=== PATIENT | female | born 1960 | race Caucasian/White ===

== ENCOUNTER 2016-04-08 11:54 | Inpatient (IN) | payer OTHER ==
[2016-04-08] MEDS ORDERED: NS 1,000 ML IV ONE ×2 (12:24→13:23)
[2016-04-08] MEDS ORDERED: ONDANSETRON 4 MG/2 ML VIAL IVP ONE (12:24)
[2016-04-08] MEDS ORDERED: HYDROmorphONE/DILAUDID 1 MG/ML SYR IVP ONE ×2 (12:24→13:54)
[2016-04-08 12:47] LABS: % IMMATURE GRANULYOCYTES 0.7 % (0.0-1.1); ABSOLUTE IMMATURE GRANULOCYTES 0.11 10^3/uL (0.00-0.10); ADD DIFF? NO; ADD MORPH? NO; ADD SCAN? NO; ATYPICAL LYMPHOCYTE FLAG 10 (0-99); FRAGMENT RBC FLAG 0 (0-99); HEMATOCRIT 29.6 % (38.0-47.0); HEMOGLOBIN 9.9 g/dL (12.6-16.3); LEFT SHIFT FLG 0 (0-99); LIPEMIA HEMOLYSIS FLAG 80 (0-99); MEAN CELL HEMOGLOBIN CONCENTR. 33.4 g/dL (32.4-36.7); MEAN CELL VOLUME 98.7 fL (81.5-99.8); PLATELET CLUMPS FLAG 0 (0-99); PLATELET COUNT 276 10^3/uL (150-400); RED CELL DISTRIBUTION WIDTH 13.4 % (11.5-15.2)
[2016-04-08] MEDS ORDERED: IOPAMIDOL (ISOVUE-300) 100 ML BTL IV ONE (12:50)
[2016-04-08 12:56] LABS: INR 1.08 (0.83-1.16); PROTIME(PATIENT) 13.9 SEC (12.0-15.0)
[2016-04-08 12:57] LABS: ALANINE AMINOTRANSFERASE 34 IU/L (9-52); ALBUMIN 3.8 g/dL (3.5-5.0); ALKALINE PHOSPHATASE 57 IU/L (38-126); ANION GAP 9 mEq/L (8-16); ASPARTATE AMINOTRANSFERASE 32 IU/L (14-46); BILIRUBIN,TOTAL 0.5 mg/dL (0.1-1.4); BILIRUBIN-CONJUGATED 0.2 mg/dL (0.0-0.5); BILIRUBIN-UNCONJUGATED 0.3 mg/dL (0.0-1.1); CALCIUM 9.1 mg/dL (8.5-10.4); CARBON DIOXIDE 26 mEq/l (22-31); CHLORIDE 110 mEq/L (97-110); CREATININE 0.9 mg/dL (0.6-1.0); GLOMERULAR FILTRATION RATE > 60; GLUCOSE 145 mg/dL (70-100); POTASSIUM 3.9 mEq/L (3.5-5.2); SODIUM 145 mEq/L (134-144); TOTAL PROTEIN 6.5 g/dL (6.3-8.2)
--- NOTE | 2016-04-08 13:20 | EDPHY ---
H & P Stated Complaint: r side abd pain since this am. +n/+v Source: Patient, Family Exam Limitations: No limitations - Personal History LMP (Females 10-55): Post Menopausal Current Tetanus/Diphtheria Vaccine: Yes Current Tetanus Diphtheria and Acellular Pertussis (TDAP): Yes - Medical/Surgical History Hx Asthma: Yes Hx Chronic Respiratory Disease: No Hx Diabetes: No Hx Cardiac Disease: No Hx Renal Disease: No Hx Cirrhosis: No Hx Alcoholism: No Hx HIV/AIDS: No Hx Splenectomy or Spleen Trauma: No Other PMH: PSH: denies. PMH: hypothyroid - Social History Smoking Status: Never smoked <Jose Lindsey - Last Filed: 04/08/16 14:35> <Philip Marti - Last Filed: 04/08/16 15:39> HPI/ROS: CHIEF COMPLAINT: abdominal pain HISTORY OF PRESENT ILLNESS: awoke this morning with severe right lower quadrant abdominal pain. Awoke her from sleep. It is a severe, constant pain. Worse with any kind of palpation and movement. No position of comfort. Nausea but no vomiting. No diarrhea or constipation. No bloody stools. No previous episode of this. She has no previous abdominal pathology or diagnoses. No fever or chills. No recent illness. No history of kidney stones. No other associated complaints or modifying factors. PREVIOUS ABDOMINAL SURGERIES/DIAGNOSES: None NPO: last night REVIEW OF SYSTEMS: Ten systems reviewed and are negative unless otherwise noted in the HPI EXAMINATION: General Appearance: Alert, no distress . No position of comfort Head: normocephalic, atraumatic Eyes: Pupils equal and round, no conjunctival pallor or injection ENT, Mouth: Mucous membranes dry. Uvula midline. No lesions or edema. Neck: Normal inspection, supple, non-tender Respiratory: Lungs are clear to auscultation . No wheezing, rhonchi or crackles. Cardiovascular: Regular rate and rhythm . No murmur. Pulses intact distally with good perfusion Gastrointestinal: Abdomen is soft with significant tenderness in the right lower quadrant and suprapubically. There is guarding. No tympany rigidity. Rectal exam: Performed with female supply officer at bedside. There is dark tarry stool. No sofía blood. Normal rectal tone. No palpable mass Back: non-tender, no bony abnormalities Neurological: A&O, nonfocal, normal gait Skin: Warm and dry, no rash Extremities: Nontender, no pedal edema Psychiatric: Mood and affect normal DIFFERENTIAL DIAGNOSES: Including but not limited to diverticulitis, colitis, appendicitis, abdominal aneurysm, enteritis MDM: 12:20 p.m. right-sided abdominal pain out of proportion to examination of the patient. Vital signs reveal hypertension but no other abnormalities. She is significantly tender palpation, thus we ordered IV pain medication, IV fluid in the i-STAT verify her creatinine to obtain a CT scan. Laboratory studies are also pending at this time. 1:50 p.m. labs reveal leukocytosis and a significantly decreased hemoglobin since January. She denies any bleeding of any sorts including the heavy vaginal bleeding. Thus I will perform rectal exam to check for occult blood. 2:00 p.m. rectal exam reveals dark tarry stools. No sofía blood. No abnormality of the rectal exam itself otherwise. Also just notified by Dr. Del Angel that she has a distal right ureteral stone measuring 5 x 4 x 3 mm. No mention of hydronephrosis or hydroureter. Stool samples been sent to lab for occult testing. 2:30 p.m. upper GI bleed with right ureterolithiasis with mild obstruction. Likely will pass without surgical intervention based on the side. She does have white count we are still attempting to obtain urine from her. We have administered Protonix and IV fluid in addition to pain medication and Zofran. She remains hemodynamically stable and her pain has significantly improved at time of arrival. Dr. Marti has discussed the case with hospitalist for admission she has been admitted at this time. SUPERVISION: Patient was evaluated in conjunction with the supervising physician. Please see their note for details. (Jose Lindsey) Constitutional: Initial Vital Signs Temperature (C) 36.7 C 04/08/16 11:59 Heart Rate 60 04/08/16 11:59 Respiratory Rate 20 04/08/16 11:59 Blood Pressure 128/82 H 04/08/16 11:59 O2 Sat (%) 97 04/08/16 11:59 O2 Delivery Mode Nasal Cannula O2 (L/minute) 2 Allergies/Adverse Reactions: No Known Allergies Allergy (Unverified 04/08/16 11:58) Home Medications: Medication Instructions Recorded Calcium Carb/Vitamin D3/Vit K1 1 each PO DAILY@12 04/08/16 [Viactiv Soft Chew Tablet] Cetirizine [ZyrTEC 10 mg (*)] 10 mg PO HS 04/08/16 FLUoxetine [Prozac 20 MG (*)] 20 mg PO DAILY 04/08/16 Levothyroxine [Synthroid 75 mcg 75 mcg PO DAILY06 04/08/16 (*)] Montelukast Sodium [Singulair 10 10 mg PO DAILY 04/08/16 mg (*)] Multivitamin [Multi-Vitamin Daily] 1 each PO DAILY 04/08/16 [place]-3 Fatty Acids [Fish Oil 1000 1,000 mg PO DAILY 04/08/16 mg (*)] Medical Decision Making <Jose Lindsey - Last Filed: 04/08/16 14:35> Consult/Admit Bed Type: Iban 1414, Les 1432 <Philip Marti - Last Filed: 04/08/16 15:39> ED Course/Re-evaluation: PHYSICIAN DOCUMENTATION: The patient was evaluated and managed by the Physician Paper Wood Cutter and myself. I have reviewed the chart and agree with the findings and plan of care as documented. In addition, I examined the patient myself at 1410. History confirmed as abdominal pain right lower quadrant and dark stools. Physical findings as follows: Patient is more comfortable at this time. She is more comfortable but is pretty groggy. Admission for pain control for her renal colic, probable upper GI bleed with a drop in hematocrit from 41 to 29 and melena. IV Protonix 40 mg. Patient states she takes a lot of NSAIDs for a chronically arthritic right knee. She does not know how long she has had melena. Discussed with Dr. Saldana who states he is on-call for Dr. Cheng today who will consult for Gastroenterology. I am the secondary supervising physician. (Philip Marti) - Data Points Laboratory Results: Laboratory Results 04/08/16 12:26 04/08/16 12:26 04/08/16 04/08/16 04/08/16 14:04 12:26 12:25 WBC 14.91 H 10^3/uL (3.80-9.50) RBC 3.00 L 10^6/uL (4.18-5.33) Hgb 9.9 L g/dL (12.6-16.3) POC Hgb 10.5 L gm/dL (12.3-15.9) Hct 29.6 L % (38.0-47.0) POC Hct 31 L % (35.5-47.5) MCV 98.7 fL (81.5-99.8) MCH 33.0 pg (27.9-34.1) MCHC 33.4 g/dL (32.4-36.7) RDW 13.4 % (11.5-15.2) Plt Count 276 10^3/uL (150-400) MPV 10.0 fL (8.7-11.7) Neut % (Auto) 88.5 H % (39.3-74.2) Lymph % (Auto) 6.8 L % (15.0-45.0) [place] % (Auto) 3.4 L % (4.5-13.0) Eos % (Auto) 0.1 L % (0.6-7.6) Baso % (Auto) 0.5 % (0.3-1.7) Nucleat RBC Rel Count 0.0 % (0.0-0.2) Absolute Neuts (auto) 13.19 H 10^3/uL (1.70-6.50) Absolute Lymphs (auto) 1.01 10^3/uL (1.00-3.00) Absolute Monos (auto) 0.51 10^3/uL (0.30-0.80) Absolute Eos (auto) 0.01 L 10^3/uL (0.03-0.40) Absolute Basos (auto) 0.08 10^3/uL (0.02-0.10) Absolute Nucleated RBC 0.00 10^3/uL (0-0.01) Immature Gran % 0.7 % (0.0-1.1) Immature Gran # 0.11 H 10^3/uL (0.00-0.10) PT 13.9 SEC (12.0-15.0) INR 1.08 (0.83-1.16) APTT 24.0 SEC (23.0-38.0) POC Sodium 144 mEq/L (134-144) Sodium 145 H mEq/L (134-144) POC Potassium 3.7 mEq/L (3.3-5.0) Potassium 3.9 mEq/L (3.5-5.2) POC Chloride 106 mEq/L (96-108) Chloride 110 mEq/L (97-110) Carbon Dioxide 26 mEq/l (22-31) Anion Gap 9 mEq/L (8-16) POC BUN 21 mg/dL (7-23) BUN 22 mg/dL (7-23) Creatinine 0.9 mg/dL (0.6-1.0) POC Creatinine 1.0 mg/dL (0.6-1.2) Estimated GFR > 60 Glucose 145 H mg/dL (70-100) POC Glucose 147 H mg/dL (70-100) Calcium 9.1 mg/dL (8.5-10.4) Total Bilirubin 0.5 mg/dL (0.1-1.4) Conjugated Bilirubin 0.2 mg/dL (0.0-0.5) Unconjugated Bilirubin 0.3 mg/dL (0.0-1.1) AST 32 IU/L (14-46) ALT 34 IU/L (9-52) Alkaline Phosphatase 57 IU/L (38-126) Total Protein 6.5 g/dL (6.3-8.2) Albumin 3.8 g/dL (3.5-5.0) Lipase 114.0 IU/L (23-300) Stool Occult Bld Scrn POSITIVE H (NEGATIVE) Medications Given: Discontinued Medications Hydromorphone HCl (Dilaudid) 1 mg IVP EDNOW ONE Stop: 04/08/16 12:25 Last Admin: 04/08/16 12:42 Dose: 1 mg Hydromorphone HCl (Dilaudid) 0.5 mg IVP EDNOW ONE Stop: 04/08/16 13:55 Last Admin: 04/08/16 14:01 Dose: 0.5 mg Sodium Chloride (Ns) 1,000 mls @ 0 mls/hr IV ONCE ONE PRN Reason: Wide Open Stop: 04/08/16 12:25 Last Admin: 04/08/16 12:43 Dose: 1,000 mls Sodium Chloride (Ns) 1,000 mls @ 0 mls/hr IV ONCE ONE PRN Reason: Wide Open Stop: 04/08/16 13:24 Last Admin: 04/08/16 13:24 Dose: 1,000 mls Pantoprazole Sodium 40 mg/ (Sodium Chloride) 100 mls @ 200 mls/hr IV EDNOW ONE Stop: 04/08/16 14:42 Last Admin: 04/08/16 14:47 Dose: 100 mls Ondansetron HCl (Zofran) 4 mg IVP EDNOW ONE Stop: 04/08/16 12:25 Last Admin: 04/08/16 12:43 Dose: 4 mg Point of Care Test Results: 04/08/16 12:25 POC Sodium 144 POC Potassium 3.7 POC Chloride 106 POC BUN 21 POC Creatinine 1.0 POC Glucose 147 H Departure <Jose Lindsey - Last Filed: 04/08/16 14:35> <Philip Marti - Last Filed: 04/08/16 15:39> - Departure Disposition: [facility] Inpatient Acute Clinical Impression: Renal colic on right side, Ureterolithiasis, GI bleed Condition: Good
--- NOTE | 2016-04-08 14:06 | CT ---
CT Abdomen and Pelvis With Contrast History: Right-sided abdominal pain, nausea and vomiting Technique: 128 slice volumetric data set helical CT obtained through the abdomen and pelvis during alex alireza administration of 150 mL Isovue-300 nonionic contrast without complication. Images are obtained d uring the portal venous phase through the abdomen and pelvis and then during the excretory phase thro ugh the abdomen. Reviewed on the computer workstation. Dose reduction techniques were utilized. Comparison: none Findings: Abdomen- There is an obstructing distal right ureteral stone measuring 5 x 3 x 4 mm that is associate d with mild right hydronephrosis, severe right hydropelvis and moderate right hydroureter. There is a tiny nonobstructive left lower pole calculus. No other right renal or ureteral stones are seen. No s tones are present in the nearly decompressed urinary bladder. There are bilateral pelvic phleboliths. There is a 10 mm incidental left lower pole renal cyst. There is a 3.5 x 3.5 cm round lesion in the dome of the right lobe of the liver that has mild periphe ral nodular enhancement during the initial portal venous phase and then demonstrates more peripheral filling in with contrast on the delayed phase. This likely represents an incidental hemangioma. The left hemidiaphragm is higher than the right, likely related to the patient's severe rotoscoliosis , that has been solidly fused from the low thoracic spine down to the L2 level. There is lumbar spond ylosis present at L4-L5. The heart is mildly enlarged without pericardial effusion. There are no bas ilar pleural effusions. The lung bases are normally aerated. Prominent fecal material in the colon is consistent with constipation. Pelvis: There is a 2.5 cm left adnexal cyst. Urinary bladder looks normal. There is no pelvic adenopa thy or free fluid. There is no retroperitoneal or inguinal adenopathy. Impression: 1. Obstructive distal right ureteral calculus, likely to pass on its own. Results called and discussed with Jose Lindsey, at 04/08/2016 14:03 General information for patients regarding this examination can be found at [email or web address]. If you have questions or comments about this report, please contact me at [phone] (hospital) or [phone] (cell).
[2016-04-08] MEDS ORDERED: PANTOPRAZOLE SODIUM 40 MG in NS 100 ML IV ONE (14:13)
[2016-04-08] MEDS ORDERED: ALBUTEROL 60 PUFFS/8 GM MDI IH PRN (16:03)
--- NOTE | 2016-04-08 16:11 | PDGENHP ---
History and Physical History and Physical: HISTORY AND PHYSICAL ADMISSION NOTE CC:One-week of lightheadedness now with right flank pain HISTORY: This patient was feeling well until approximately 5 or 6 days ago when she started having lightheadedness and orthostatics since along with some significant exertional fatigue. There is no chest pain palpitations cough fevers upper respiratory symptoms. Of note probably related to this and is that the patient does take a lot of nonsteroidal anti-inflammatory medicines for bilateral severe knee arthritis. She has been taking Naprosyn once or twice daily for probably years. The patient has not noticed any melenic stools or blood in her stool but she does not really look. She has been able to eat and does not have nausea or abdominal pain per se. This morning the patient developed significant right-sided flank pain prompting her trip to the emergency room for evaluation. Again there is no fever symptoms related with this. 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 MEDICATIONS: her medication list has been reconciled by pharmacist in the electronic record and I have reviewed the list and ordered appropriate medicines PHYSICAL EXAMINATION: Vital Signs: stable without fever Examination: General: alert, oriented, good mentation, relaxed Skin: warm, dry, good color, no rash HEENT: normal Neck: no mass or jvd Resps: relaxed Lungs: clear breath sounds Heart: regular, no murmur Abdomen: soft, nondistended, nontender, +BS, no mass Upper Extremities: normal Lower Extremities: no edema, warm No Bleeding or bruising Neurologic: normal speech/language, normal inspector rag sorting, no focal weakness IV site: looks normal Dr. Philip Marti did perform a rectal exam in the ER and found melenic stool present LABORATORY DATA: hemoglobin is decreased at 9, had been normal when last checked about a year ago sodium slightly high 145, glucose 145 RADIOLOGY STUDIES: CT scan of abdomen shows presence of a distal right ureteral calculus at 5 mm ASSESSMENT: # ACUTE AND SUBACUTE UPPER GI BLEEDING WITH MELENIC STOOLS, AND SYMPTOMATIC ANEMIA # POST HEMORRHAGIC ANEMIA # RIGHT RENAL STONE OBSTRUCTING IN THE DISTAL RIGHT URETER my suspicion is that she has nonsteroidal anti-inflammatory induced ulcer that is bleeding in her stomach and she has been symptomatic with anemia from that. She probably, due to her anemia, bleeding, and poor oral intake the last few days, along with use of nonsteroidals, has had very poor renal perfusion. I suspect this is why she has a kidney stone her 1st ever. She did have vomiting at home x1 today and is possible she could have bleeding from Claritza-Maza tear in that the anemia is new today but her story would suggest otherwise. PLANS: - Admission hospital IV hydration aggressively Follow hemoglobin and vital signs very closely, transfusion as indicated IV Protonix has been started in the ER will continue that Scan urine for stone Dr. Rohan Saldana has been consulted from gastroenterology will plan on upper endoscopy the I have reviewed the patient's case in detail with Dr. Philip Marti
[2016-04-08] MEDS: HYDROmorphONE/DILAUDID 1 MG/ML SYR IVP PRN ×3 (16:48→23:49)
[2016-04-08] MEDS: NS 1,000 ML IV SCH (16:49)
[2016-04-08] MEDS: FLUoxetine 20 MG CAP PO SCH (17:37)
[2016-04-08] MEDS: MONTELUKAST SODIUM 10 MG TAB PO SCH (17:37)
[2016-04-08] MEDS: LEVOTHYROXINE 75 MCG TAB PO SCH (17:38)
[2016-04-08] MEDS: OMEGA-3 FATTY ACIDS 1,000 MG CAP PO SCH (17:38)
--- NOTE | 2016-04-08 17:39 | GCON ---
[f rep st] CONSULTATION CHIEF COMPLAINT: Anemia with melena, right flank pain. HISTORY OF PRESENT ILLNESS: This very pleasant 55-year-old presented to the emergency room with flan k pain, right-sided pain. She had a CT scan of the abdomen that showed a distal right ureteral calcu alireza, approximately 5 mm in size. The stone was obstructing the right distal ureter. It was felt parish t this was the etiology of her flank and side pain. Also to note, she was found to be anemic and had heme-positive stool with some black stool on digital rectal exam. Patient has not noticed any signi ficant problems with melenic stool. She does have a remote history of peptic ulcer disease. She als o has been taking frequent NSAIDs for knee pain. She is admitted to the hospital at this time for ma nagement of ureteral stone with pain, and heme-positive stool with anemia consistent with possible GI bleed. She has not had a previous colonoscopy. She has no family history of colon cancer or colon polyps. PAST MEDICAL HISTORY: Remarkable for depression, anxiety, hypothyroidism, asthma, peptic ulcer disea se, chronic bilateral knee pain from arthritis. MEDICATIONS: Prior to admission include fluoxetine, omega-3 fatty acids, multivitamin, montelukast, or Singulair 10 mg p.o. daily, levothyroxine, Zyrtec, calcium carbonate, and naproxen 1 tablet twice a day. FAMILY HISTORY: Negative, as it pertains to chief complaint. 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 ALLERGIES: No known drug allergies. REVIEW OF SYSTEMS: Negative 10 systems other than as mentioned in HPI. PHYSICAL EXAM: VITAL SIGNS: Blood pressure 103/65, heart rate 65, respiratory rate 16, 97% sat on 2 L of nasal cannula. GENERAL: A very pleasant woman in no acute distress. HEENT: Normocephalic, a traumatic, EOMI. NECK: Supple, no cervical adenopathy, no thyromegaly. LUNGS: Clear. CARDIAC: N ormal S1 and S2, without murmur. ABDOMEN: Benign, soft, no hepatosplenomegaly, normal bowel sounds, nontender. EXTREMITIES: Unremarkable, without clubbing, cyanosis, edema. SKIN: Warm, dry, intact . NEUROLOGIC: Nonfocal. Cranial nerves 2-12 intact. PSYCH: Normal affect. LABORATORY DATA: PT of 13.9, INR of 1.08. Serum chemistry, serum sodium 145, potassium 3.9, chlorid e of 110, CO2 of 26, blood sugar of 145, AST of 32, ALT of 34, hemoglobin of 9.9, hematocrit 29.6, MC V of 98.7. IMPRESSION: A 55-year-old woman admitted with right flank pain due to ureteral stone. Patient also found to be anemic with heme-positive stool, with a history of nonsteroidal antiinflammatory drug use . Patient also with a prior history of peptic ulcer disease. She is hemodynamically stable. RECOMMENDATIONS: 1. Regular diet today, pantoprazole 40 mg b.i.d. 2. Proceed with diagnostic endoscopy in the morning. We will follow with you. /[id number]/MODL
[2016-04-08 18:15] LABS: COLOR YELLOW; LEUKOCYTE ESTERASE,URINE NEGATIVE (NEGATIVE); NITRITE,URINE NEGATIVE (NEGATIVE)
[2016-04-08 18:19] LABS: BACTERIA TRACE /hpf (NONE SEEN)
[2016-04-08] MEDS: CETIRIZINE 10 MG TAB PO SCH (19:41)
[2016-04-08] MEDS: PANTOPRAZOLE SODIUM 40 MG in NS 100 ML IV SCH (21:24)
[2016-04-08] MEDS: ONDANSETRON 4 MG/2 ML VIAL IVP PRN (23:23)
[2016-04-08] MEDS: ZOLPIDEM TARTRATE 5 MG TAB PO PRN (23:24)
[2016-04-09] MEDS: HYDROmorphONE/DILAUDID 1 MG/ML SYR IVP PRN (01:30)
[2016-04-09] MEDS: ZOLPIDEM TARTRATE 5 MG TAB PO PRN (01:38)
[2016-04-09] MEDS ORDERED: NALOXONE HCL 0.4 MG/ML INJ IVP PRN (01:52)
[2016-04-09] MEDS: HYDROmorphONE/DILAUDID 6 MG/30 ML PCA IV PRN (02:16)
[2016-04-09] MEDS ORDERED: NS 1,000 ML IV ONE (03:57)
[2016-04-09] MEDS: LEVOTHYROXINE 75 MCG TAB PO SCH (05:07)
[2016-04-09 05:27] LABS: % IMMATURE GRANULYOCYTES 0.4 % (0.0-1.1); ABSOLUTE IMMATURE GRANULOCYTES 0.03 10^3/uL (0.00-0.10); ADD DIFF? NO; ADD MORPH? NO; ADD SCAN? NO; ATYPICAL LYMPHOCYTE FLAG 10 (0-99); FRAGMENT RBC FLAG 0 (0-99); HEMATOCRIT 21.1 % (38.0-47.0); LEFT SHIFT FLG 0 (0-99); LIPEMIA HEMOLYSIS FLAG 80 (0-99); MEAN CELL HEMOGLOBIN CONCENTR. 33.2 g/dL (32.4-36.7); MEAN CELL VOLUME 102.4 fL (81.5-99.8); MEAN PLATELET VOLUME 10.3 fL (8.7-11.7); PLATELET CLUMPS FLAG 10 (0-99); PLATELET COUNT 170 10^3/uL (150-400); RED BLOOD CELL COUNT 2.06 10^6/uL (4.18-5.33); RED CELL DISTRIBUTION WIDTH 13.9 % (11.5-15.2)
[2016-04-09 05:46] LABS: ANION GAP 2 mEq/L (8-16); CALCIUM 7.9 mg/dL (8.5-10.4); CARBON DIOXIDE 25 mEq/l (22-31); CHLORIDE 114 mEq/L (97-110); CREATININE 0.9 mg/dL (0.6-1.0); GLOMERULAR FILTRATION RATE > 60; GLUCOSE 89 mg/dL (70-100); POTASSIUM 3.9 mEq/L (3.5-5.2); SODIUM 141 mEq/L (134-144)
[2016-04-09] MEDS ORDERED: fentaNYL 100 MCG/2 ML INJ ONE (09:41)
[2016-04-09] MEDS ORDERED: MIDAZOLAM 2 MG/2 ML VIAL ONE (09:41)
--- NOTE | 2016-04-09 10:46 | GPN ---
[f rep st] PROCEDURE NOTE PROCEDURE: Esophagogastroduodenoscopy with biopsy. PREOPERATIVE DIAGNOSIS: Gastrointestinal bleed. POSTOPERATIVE DIAGNOSES: 1. [place] gastric ulcer on the lesser curve, 1 cm. No stigmata of recent bleeding. Status post biopsy. 2. Gastritis, antrum patchy, status post biopsy for Helicobacter pylori. INDICATIONS: A 55-year-old woman admitted to the hospital with flank pain from symptomatic kidney stone. Patient also with a history of chronic osteoarthritis with knee pain. Takes frequent NSAIDs. Has a remote history of peptic ulcer disease. Was noted to be anemic with melenic stool. She was hemodynamically stable. Presents today for upper endoscopy. PHYSICAL EXAMINATION: VITAL SIGNS: Stable. LUNGS: Clear. CARDIAC: Normal S1, S2. PERMIT: The procedure was explained to the patient. Risks and benefits of the procedure outlined to the patient. Informed consent obtained. PREOPERATIVE MEDICATIONS: Fentanyl 75 mcg, Versed 3 mg. ANESTHESIA TIME: Greater than 10 minutes. FINDINGS OF PROCEDURE: The patient was placed in the left lower decubitus position. The GIF-180 video scope was passed in the oropharynx under direct visualization to the proximal esophagus. Esophagus was normal. GE junction at 40 cm. Endoscope was passed in the stomach. The stomach was remarkable for patchy erythema and gastritis in the antrum. On the lesser curve, there was a 1 cm bland-appearing ulcer. No stigmata of recent bleeding. Endoscope was passed through the pylorus and 1st and 2nd portion of the duodenum. Duodenal sweep was normal. Endoscope was brought back in the stomach. Retroflex view of the stomach revealed a normal angularis, fundus, and cardia. Endoscope was un-retroflexed. Biopsies were taken of the antrum for H pylori, and additional biopsies were also taken of the gastric ulcer. Endoscope was then withdrawn. IMPRESSION: 1. Gastric ulcer at the lesser curvature of the antrum, 1 cm, bland appearing, without stigmata of recent bleeding. 2. Mild gastritis, status post biopsy. RECOMMENDATIONS: 1. Regular diet. 2. Pantoprazole 40 mg daily. 3. If H pylori positive, would recommend treatment with Prevpac x14 days. 4. Would recommend repeat endoscopy to document healing of gastric ulcer in 8 weeks' time. Thank you for allowing me to participate in the care of this patient. /[id number]/MODL MTDD
[2016-04-09] MEDS: ONDANSETRON 4 MG/2 ML VIAL IVP PRN (12:47)
[2016-04-09] MEDS: OMEGA-3 FATTY ACIDS 1,000 MG CAP PO SCH (12:48)
[2016-04-09] MEDS: MONTELUKAST SODIUM 10 MG TAB PO SCH (12:52)
[2016-04-09] MEDS: MULTIVITAMINS 1 EACH TAB PO SCH (12:52)
[2016-04-09 14:44] LABS: HEMOGLOBIN 7.5 g/dL (12.6-16.3)
--- NOTE | 2016-04-09 15:17 | HOSPPROG ---
Hospitalist Progress Note Assessment/Plan: * kidney stone * has not passed * continue IV fluids and pain control * gastric ulcer * probably due to NSAIDs * continue PPI * anemia secondary to acute blood loss * will monitor hemoglobin * hypothyroidism * severe osteoarthritis * cannot take NSAIDs * I have written some herbal anti-inflammatories on discharge paperwork * history of migraines Subjective: continued flank pain Objective: Vital Signs Temp Pulse Resp BP Pulse Ox 37.1 C 61 14 90/57 L 98 04/09/16 13:30 04/09/16 13:30 04/09/16 13:30 04/09/16 13:30 04/09/16 13:30 Laboratory Results 04/09/16 14:39 04/09/16 04:59 04/08/16 04/09/16 04/10/16 05:59 05:59 05:59 Intake Total 4545 Output Total 1200 Balance 3345 PT 13.9 SEC (12.0-15.0) 04/08/16 12:26 INR 1.08 (0.83-1.16) 04/08/16 12:26 discussed with Gastroenterology - Time Spent With Patient Time Spent with Patient: greater than 35 minutes (patient's current condition and plan) Time Spent with Patient: Greater than 35 minutes spent on this patients care, greater than 50% of time spent counseling, educating, and coordinating care regarding the above mentioned plan. - Physical Exam Constitutional: no apparent distress, appears nourished, not in pain Eyes: anicteric sclera, EOMI Ears, Nose, Mouth, Throat: moist mucous membranes, hearing normal Cardiovascular: regular rate and rhythym, no murmur, rub, or gallop Respiratory: no respiratory distress Gastrointestinal: normoactive bowel sounds, soft, non-tender abdomen, no palpable masses Skin: warm Neurologic: AAOx3 Psychiatric: interacting appropriately, not anxious, not encephalopathic, thought process linear ICD10 Worksheet Patient Problems: Problems Problem Status Diagnosed GI bleed Acute Renal colic on right side Acute Ureterolithiasis Acute
[2016-04-09] MEDS: PANTOPRAZOLE SODIUM 40 MG in NS 100 ML IV SCH (16:29)
[2016-04-09] MEDS: FLUoxetine 20 MG CAP PO SCH (19:13)
[2016-04-09] MEDS: CALCIUM CARB W/VIT D 500 MG TAB PO SCH (19:14)
[2016-04-09] MEDS: CETIRIZINE 10 MG TAB PO SCH (21:16)
[2016-04-09] MEDS: PANTOPRAZOLE SODIUM 40 MG TAB PO SCH (21:16)
[2016-04-10] MEDS: ACETAMINOPHEN 325 MG TAB PO PRN ×3 (00:33→16:37)
[2016-04-10] MEDS: ONDANSETRON 4 MG/2 ML VIAL IVP PRN ×3 (00:36→19:00)
[2016-04-10] MEDS: LEVOTHYROXINE 75 MCG TAB PO SCH (05:38)
[2016-04-10 05:57] LABS: % IMMATURE GRANULYOCYTES 0.4 % (0.0-1.1); ABSOLUTE IMMATURE GRANULOCYTES 0.02 10^3/uL (0.00-0.10); ADD DIFF? NO; ADD MORPH? NO; ADD SCAN? NO; ATYPICAL LYMPHOCYTE FLAG 20 (0-99); FRAGMENT RBC FLAG 0 (0-99); HEMATOCRIT 21.6 % (38.0-47.0); HEMOGLOBIN 7.1 g/dL (12.6-16.3); LEFT SHIFT FLG 0 (0-99); LIPEMIA HEMOLYSIS FLAG 80 (0-99); MEAN CELL HEMOGLOBIN 34.1 pg (27.9-34.1); MEAN CELL HEMOGLOBIN CONCENTR. 32.9 g/dL (32.4-36.7); MEAN CELL VOLUME 103.8 fL (81.5-99.8); MEAN PLATELET VOLUME 10.5 fL (8.7-11.7); PLATELET CLUMPS FLAG 10 (0-99); PLATELET COUNT 192 10^3/uL (150-400); RED BLOOD CELL COUNT 2.08 10^6/uL (4.18-5.33); RED CELL DISTRIBUTION WIDTH 14.1 % (11.5-15.2)
[2016-04-10 06:17] LABS: ANION GAP 4 mEq/L (8-16); CALCIUM 7.9 mg/dL (8.5-10.4); CARBON DIOXIDE 26 mEq/l (22-31); CHLORIDE 112 mEq/L (97-110); CREATININE 0.6 mg/dL (0.6-1.0); GLOMERULAR FILTRATION RATE > 60; GLUCOSE 90 mg/dL (70-100); SODIUM 142 mEq/L (134-144)
[2016-04-10] MEDS: MULTIVITAMINS 1 EACH TAB PO SCH (08:07)
[2016-04-10] MEDS: PANTOPRAZOLE SODIUM 40 MG TAB PO SCH ×2 (08:07→21:12)
[2016-04-10] MEDS: FLUoxetine 20 MG CAP PO SCH (08:07)
[2016-04-10] MEDS: OMEGA-3 FATTY ACIDS 1,000 MG CAP PO SCH (08:07)
[2016-04-10] MEDS: MONTELUKAST SODIUM 10 MG TAB PO SCH (08:07)
[2016-04-10] MEDS: NS 1,000 ML IV SCH (10:52)
[2016-04-10] MEDS: CALCIUM CARB W/VIT D 500 MG TAB PO SCH (12:08)
[2016-04-10 12:09] LABS: HEMATOCRIT 22.6 % (38.0-47.0); HEMOGLOBIN 7.4 g/dL (12.6-16.3)
[2016-04-10] MEDS: HYDROmorphONE/DILAUDID 6 MG/30 ML PCA IV PRN (13:08)
--- NOTE | 2016-04-10 17:08 | HOSPPROG ---
Hospitalist Progress Note Assessment/Plan: 55 yo F presenting with lightheadedness and flank pain as well as melena # acute gi bleed: GI consulted, EGD performed and gastric ulcer and gastritis found without active bleeding. In setting of nsaid use. DC nsaids, continue PPI , monitoring h/h for signs of recurrent bleeding # acute blood loss anemia: with h/h staying low and possibly symptomatic from this. 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 Possibly exacerbated by anemia. # right ureteral stone: 5mm stone noted, obstructive however given small size likely to pass on it's own, pain has resolved, continue IVF/pain mgmt # dispo: IP status, requiring IV narcotics and therefore high risk Patient new to my care. Old records reviewed/summarized as above. Further hx obtained from patients at bedside. Subjective: no significant overnight events, patient with severe headache currently, otherwise no other issues--no flank pain Objective: Vital Signs Temp Pulse Resp BP Pulse Ox 37.0 C 65 12 108/66 96 04/10/16 16:24 04/10/16 16:24 04/10/16 16:24 04/10/16 16:24 04/10/16 16:24 Laboratory Results 04/10/16 12:00 04/10/16 05:21 04/09/16 04/10/16 04/11/16 05:59 05:59 05:59 Intake Total 4545 Output Total 1200 1700 400 Balance 3345 -1700 -400 PT 13.9 SEC (12.0-15.0) 04/08/16 12:26 INR 1.08 (0.83-1.16) 04/08/16 12:26 awake alert chronically ill appearing anicteric op clear rrr no mrg cta b soft nt nd no cce warm dry well perfused oriented appropriate - Time Spent With Patient Time Spent with Patient: greater than 35 minutes Time Spent with Patient: Greater than 35 minutes spent on this patients care, greater than 50% of time spent counseling, educating, and coordinating care regarding the above mentioned plan. ICD10 Worksheet Patient Problems: Problems Problem Status Diagnosed GI bleed Acute Renal colic on right side Acute Ureterolithiasis Acute
[2016-04-10 20:47] LABS: HEMATOCRIT 29.3 % (38.0-47.0); HEMOGLOBIN 9.8 g/dL (12.6-16.3)
[2016-04-10] MEDS: CETIRIZINE 10 MG TAB PO SCH (21:12)
[2016-04-11 06:56] LABS: HEMATOCRIT 30.2 % (38.0-47.0); HEMOGLOBIN 10.4 g/dL (12.6-16.3)
[2016-04-11 06:59] LABS: HEMATOCRIT 29.4 % (38.0-47.0); HEMOGLOBIN 10.1 g/dL (12.6-16.3)
[2016-04-11] MEDS: ONDANSETRON 4 MG/2 ML VIAL IVP PRN (07:43)
[2016-04-11] MEDS: LEVOTHYROXINE 75 MCG TAB PO SCH (09:00)
[2016-04-11] MEDS: NS 1,000 ML IV SCH (09:55)
[2016-04-11] MEDS: FLUoxetine 20 MG CAP PO SCH (10:04)
[2016-04-11] MEDS: OMEGA-3 FATTY ACIDS 1,000 MG CAP PO SCH (10:04)
[2016-04-11] MEDS: MULTIVITAMINS 1 EACH TAB PO SCH (10:04)
[2016-04-11] MEDS: MONTELUKAST SODIUM 10 MG TAB PO SCH (10:04)
[2016-04-11] MEDS: PANTOPRAZOLE SODIUM 40 MG TAB PO SCH (10:04)
[2016-04-11] MEDS ORDERED: PROMETHAZINE HCL 25 MG TAB PO PRN (10:21)
[2016-04-11] MEDS ORDERED: ACET/CAFFEINE/BUTA FIORICET 1 EACH TAB PO PRN (10:21)
[2016-04-11] MEDS ORDERED: diphenhydrAMINE 25 MG CAP PO PRN (10:21)
[2016-04-11] MEDS ORDERED: oxyCODONE IR 5 MG TAB PO PRN (10:21)
[2016-04-11] MEDS ORDERED: ONDANSETRON DISINTEGRATING 4 MG TAB PO PRN (10:21)
[2016-04-11] MEDS ORDERED: DEXAMETHASONE 10 MG/ML VIAL IVP ONE (10:24)
[2016-04-11] MEDS: CALCIUM CARB W/VIT D 500 MG TAB PO SCH (13:26)
--- NOTE | 2016-04-11 14:25 | HOSPPROG ---
Hospitalist Progress Note Assessment/Plan: 55 yo F presenting with lightheadedness and flank pain as well as melena # acute gi bleed: GI consulted, EGD performed and gastric ulcer and gastritis found without active bleeding. In setting of nsaid use. No evidence of recurrent bleeding overnight. # acute blood loss anemia: with h/h staying low and possibly symptomatic from this. Transfusing 2 units prbc and again continue to monitor # migraine HATCH: severe, hx of migraines. Not improved s/p transfusion and patient continuing to use dilaudid PCP for pain control this am. Query rebound headache related to heavy opiate use. 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 Will attempt to spare use of opiates as able. Reviewed this plan with patient. # right ureteral stone: 5mm stone noted, obstructive however given small size likely to pass on it's own, pain has resolved and suspect stone has likely passed # dispo: IP status, requiring IV narcotics and therefore high risk Further hx obtained from patients and daughter present at bedside. Subjective: continues to complain of severe headache, has been using dilaudid [employer] since admission, not really eating, not getting out of bed Objective: Vital Signs Temp Pulse Resp BP Pulse Ox 36.9 C 58 L 16 128/81 H 95 04/11/16 12:00 04/11/16 12:00 04/11/16 12:00 04/11/16 12:00 04/11/16 12:00 Laboratory Results 04/11/16 05:16 04/10/16 05:21 04/10/16 04/11/16 04/12/16 05:59 05:59 05:59 Intake Total 899 Output Total 1700 500 700 Balance -1700 399 -700 PT 13.9 SEC (12.0-15.0) 04/08/16 12:26 INR 1.08 (0.83-1.16) 04/08/16 12:26 awake chronically ill appearing eyes closed and groaning anicteric op clear rrr no mrg cta b soft nt nd no cce warm dry well perfused oriented anxious appearing - Time Spent With Patient Time Spent with Patient: greater than 35 minutes Time Spent with Patient: Greater than 35 minutes spent on this patients care, greater than 50% of time spent counseling, educating, and coordinating care regarding the above mentioned plan. ICD10 Worksheet Patient Problems: Problems Problem Status Onset GI bleed Acute Renal colic on right side Acute Ureterolithiasis Acute
--- NOTE | 2016-04-11 15:38 | PDDCSUM ---
Discharge Summary Discharge Summary: Dates of service 04/08-04/11/16 Discharge dx: # acute gi bleed # gastric ulcer # acute blood loss anemia # migraine headache # ureterolithiasis Consultations: GI Procedures performed:EGD Hospital course by problem: # acute gi bleed: GI consulted, EGD performed and gastric ulcer and gastritis found without active bleeding. In setting of nsaid use. dc nsaids, continue PPI # acute blood loss anemia: stable s/p transfusion of 2 units, in setting of above # migraine HATHC: severe, hx of migraines. 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 resolved off of dilaudid and with fiorcet. # right ureteral stone: 5mm stone noted, obstructive however given small size likely to pass on it's own, pain has resolved and suspect stone has likely passed > 35 minutes spent in discharge f/u with PCP and GI Meds: see EHR, include fioricet and pantoprazole
[2016-04-11 16:20] VITALS: BP 134/78; PULSE 70; RESP 18; TEMP 98.6; O2SAT 90
== END 2016-04-11 17:20 | disposition home or self-care (01) | DRG 378 ==
LOC: F3E 15:26
PROVIDERS: ADMIT Internal Medicine; ATTEND Internal Medicine
PROC: 0DB68ZX Excision of Stomach, Via Natural or Artificial Opening Endoscopic, Diagnostic (ICD-10-PCS; principal; 2016-04-09 10:05)
PROC: 30233N1 Transfusion of Nonautologous Red Blood Cells into Peripheral Vein, Percutaneous Approach (ICD-10-PCS; 2016-04-10)
DX: K92.2 Gastrointestinal hemorrhage, unspecified (principal); D62 Acute posthemorrhagic anemia; K25.9 Gastric ulcer, unspecified as acute or chronic, without hemorrhage or perforation; K29.70 Gastritis, unspecified, without bleeding; N20.1 Calculus of ureter; G43.909 Migraine, unspecified, not intractable, without status migrainosus; E03.9 Hypothyroidism, unspecified; M17.0 Bilateral primary osteoarthritis of knee
CPT/HCPCS: 82947-QW; 96365; J1170; J2250; J2405; J3010; P9016; Q9967

== ENCOUNTER → 2017-04-26 | Outpatient (CLI) | payer OTHER | LOC: FIMAGING 13:56 | PROVIDERS: ATTEND Internal Medicine | DX: Z12.31 Encounter for screening mammogram for malignant neoplasm of breast (principal) ==

== ENCOUNTER → 2017-12-27 | Outpatient (CLI) | payer OTHER | LOC: FIMAGING 16:06 | DX: M41.85 Other forms of scoliosis, thoracolumbar region (principal); M48.061 Spinal stenosis, lumbar region without neurogenic claudication; M43.16 Spondylolisthesis, lumbar region; M53.86 Other specified dorsopathies, lumbar region ==